=== PATIENT | male | born 2000 | race Caucasian/White ===

== ENCOUNTER 2020-12-21 11:02 | Emergency (ER) | payer OTHER ==
[~2020-12-21] VITALS: Ht 175.3 cm; Wt 71.7 kg
[2020-12-21 11:03] VITALS: BP 133/63
[2020-12-21] MEDS ORDERED: LEXA1TAB PO (11:07)
--- NOTE | 2020-12-21 11:23 | REP ---
INDICATION: fall, pain COMPARISON: None. TECHNIQUE: AP, lateral, bilateral oblique views right wrist. FINDINGS: No obvious acute fracture or dislocation is appreciated. No subcutaneous emphysema or foreign body. IMPRESSION: No obvious acute fracture or dislocation. If the patient remains symptomatic consider re-evaluation in 3-5 days including scaphoid view if necessary. <Electronically signed by Yobani Hooker > 12/21/20 [id number]
== END 2020-12-21 11:36 | disposition home or self-care (01) ==
LOC: M ED 11:02
DX: S63.91XA Sprain of unspecified part of right wrist and hand, initial encounter (principal); W00.9XXA Unspecified fall due to ice and snow, initial encounter; Y92.89 Other specified places as the place of occurrence of the external cause; Y93.23 Activity, snow (alpine) (downhill) skiing, snowboarding, sledding, tobogganing and snow tubing; Y99.9 Unspecified external cause status; F17.200 Nicotine dependence, unspecified, uncomplicated

== ENCOUNTER → 2021-10-15 | Outpatient (CLI) | payer OTHER ==
[~2021-10-15] MED LIST: LEXA1TAB PO
== END ==
LOC: M LABSMTC 13:39
PROVIDERS: ATTEND Pediatrics
DX: Z20.822 Contact with and (suspected) exposure to COVID-19 (principal)
CPT/HCPCS: C9803; U0003